=== PATIENT | female | born 1995 | race Caucasian/White ===

== ENCOUNTER 2018-05-10 12:09 | Emergency (ER) | payer SELFPAY ==
[~2018-05-10] VITALS: Ht 167.6 cm; Wt 96.8 kg
[~2018-05-10 12:09] MED LIST: BACTDS PO; CEPH-443 PO; IBUP-1542 PO; PREN-39 PO
[2018-05-10 12:19] VITALS: Ht 167.6 cm; Wt 96.8 kg
[2018-05-10] MEDS ORDERED: KETOROLAC 15 MG INJ IV STA ×2 (12:57→17:10)
[2018-05-10] MEDS ORDERED: SODIUM CHLORIDE 0.9% 1L BAG IV* STA (12:57)
[2018-05-10] MEDS ORDERED: ACETAMINOPHEN 325 MG TAB PO ONE ×2 (13:00→17:30)
[2018-05-10] MEDS ORDERED: CEFTRIAXONE 1 GM/50 ML (PMX) 50 ML IVPB ONE (14:00)
--- NOTE | 2018-05-10 14:07 | ERD ---
ER Documentation Chief Complaint Chief Complaint Complains of a cough with fever since this am HPI This is a 22-year-old female with no significant past medical history who is presenting with a fever. Last Friday, the patient reportedly a seafood and has felt sick since then. The patient has had fever with chills. She endorses full body aches including neck pain and a frontal throbbing pulsing. She does not have any neck stiffness. She is not confused in any way. Headache she has no vision changes. She has no double or blurry vision. She has no photophobia or phonophobia. She does report nausea but no vomiting. She denies any focal deficits. She has no weakness or numbness or tingling to the face or extremities. She does endorse palpitations but no chest pain or pleuritic pain or trouble breathing. She has not had a cough or congestion. She does endorse mild waxing and waning cramping abdominal pain, worse in the epigastrium. She has not noticed any dysuria or hematuria or urgency or frequency. She has not had any constipation or diarrhea. She denies any black or bloody or tarry stools. ROS All systems reviewed and are negative except as per history of present illness. Medications Home Meds Active Scripts Ibuprofen* (Motrin*) 600 Mg Tab, 600 MG PO Q6, #14 TAB Prov:FAINA CLRAK MD 05/29/15 Sulfamethoxazole-Trimethoprim* (Bactrim* DS) 800-160 Mg Tab, 1 TAB PO BID for 10 Days, TAB Prov:FAINA CLARK MD 05/29/15 Cephalexin* (Keflex*) 500 Mg Capsule, 500 MG PO QID for 10 Days, CAP Prov:FAINA CLARK MD 05/29/15 Reported Medications Vits W-Ca,Fe,Fa(<1MG) ( Vitamins) 1 Tab Tablet, 1 TAB PO 01/11/14 Allergies Allergies: Coded Allergies: No Known Allergy (Unverified , 01/11/14) PMhx/Soc Medical and Surgical Hx: pt denies Medical Hx, pt denies Surgical Hx History of Surgery: No Hx Neurological Disorder: No Hx Respiratory Disorders: No Hx Cardiac Disorders: No Hx Psychiatric Problems: No Hx Miscellaneous Medical Probl: No Hx Alcohol Use: No Hx Substance Use: No Hx Tobacco Use: No Smoking Status: Never smoker FmHx Family History: No diabetes Physical Exam Vitals Vital Signs Date Temp Pulse Resp B/P (MAP) Pulse Ox O2 O2 Flow FiO2 Time Delivery Rate 05/10/18 99.2 89 24 100/74 100 Room Air 16:47 (83) 05/10/18 98.7 15:05 05/10/18 94/52 (66) 14:22 05/10/18 101.1 91 25 89/49 (62) 95 14:10 05/10/18 101.7 13:34 05/10/18 Nasal 2 13:05 Cannula 05/10/18 101.7 125 20 126/90 95 12:19 (102) Physical Exam Const: No apparent distress, well-developed, well-nourished Head: Normocephalic, Atraumatic Eyes: Normal Conjunctiva. Extraocular movements intact. Pupils equal, round and reactive to light ENT: Normal External Ears, Nose and Mouth. Neck: Full range of motion. No meningismus. Resp: Clear to auscultation bilaterally, No wheezes, rales or rhonchi Cardio: Regular rhythm. Tachycardia. No murmurs, rubs or gallops Abd: Soft, non tender, non distended. Normal bowel sounds Skin: No petechiae or rashes Back: No midline tenderness. No CVA tenderness Ext: No cyanosis, or edema Neur: Awake and alert, oriented 4. Cranial nerves intact. No facial droop. Normal strength, sensation and coordination. Psych: Normal Mood and Affect Result Diagram: 05/10/18 1315 05/10/18 1315 Results 24 hrs Laboratory Tests Test 05/10/18 13:11 05/10/18 13:15 05/10/18 13:20 05/10/18 16:11 POC Venous Lactate 1.3 mmol/L 1.1 mmol/L White Blood Count 18.5 10^3/ul Red Blood Count 4.73 10^6/ul Hemoglobin 13.0 g/dl Hematocrit 40.2 % Mean Corpuscular 85.0 fl Volume Mean Corpuscular 27.5 pg Hemoglobin Mean Corpuscular 32.3 g/dl Hemoglobin Concent Red Cell 12.9 % Distribution Width Platelet Count 372 10^3/UL Mean Platelet 9.1 fl Volume Immature 0.600 % Granulocytes % Neutrophils % 79.7 % Lymphocytes % 10.5 % Monocytes % 8.8 % Eosinophils % 0.1 % Basophils % 0.3 % Nucleated Red 0.0 /100WBC Blood Cells % Immature 0.120 10^3/ul Granulocytes # Neutrophils # 14.8 10^3/ul Lymphocytes # 1.9 10^3/ul Monocytes # 1.6 10^3/ul Eosinophils # 0.0 10^3/ul Basophils # 0.1 10^3/ul Nucleated Red 0.0 10^3/ul Blood Cells # Prothrombin Time 15.0 Sec Prothrombin Time 1.2 Ratio INR International 1.17 Normalized Ratio Activated 33.[address] Time Urine Color YELLOW Urine Clarity CLOUDY Urine pH 6.0 Urine Specific 1.021 [place] Urine Ketones NEGATIVE mg/dL Urine Nitrite NEGATIVE mg/dL Urine Bilirubin NEGATIVE mg/dL Urine Urobilinogen 2+ mg/dL Urine Leukocyte TRACE Jv/ul Esterase Urine Microscopic 9 /HPF RBC Urine Microscopic 41 /HPF WBC Urine Squamous MANY /HPF Epithelial Cells Urine Bacteria FEW /HPF Urine Mucus FEW /HPF Urine Hemoglobin 2+ mg/dL Urine Glucose NEGATIVE mg/dL Urine Total 2+ mg/dl Protein Sodium Level 139 mmol/L Potassium Level 4.2 mmol/L Chloride Level 97 mmol/L Carbon Dioxide 27 mmol/L Level Anion Gap 15 Blood Urea 9 mg/dl Nitrogen Creatinine 0.67 mg/dl Est Glomerular > 60 mL/min Filtrat Rate mL/min Glucose Level 111 mg/dl Calcium Level 8.7 mg/dl Total Bilirubin 0.2 mg/dl Direct Bilirubin 0.00 mg/dl Indirect Bilirubin 0.2 mg/dl Aspartate Amino 20 IU/L Transf (AST/SGOT) Alanine 14 IU/L Aminotransferase ( ALT/SGPT) Alkaline 100 IU/L Phosphatase Troponin I < 0.012 ng/ml Total Protein 8.6 g/dl Albumin 4.3 g/dl Globulin 4.30 g/dl Albumin/Globulin 1.00 Ratio POC Beta HCG, NEGATIVE Qualitative Current Medications Medications Dose Sig/Blanca Start Time Status Last (Trade) Ordered Route PRN Stop Time Admin Dose Reason Admin Sodium 2,900 ml BOLUS OVER 2 05/10/18 DC 05/10/18 Chloride HOURS STAT 12:57 13:36 (NS) IV* 05/10/18 12:58 Ketorolac 15 mg ONCE STAT 05/10/18 DC 05/10/18 Tromethamine IV 12:57 13:34 (Toradol) 05/10/18 12:59 650 mg ONCE ONCE 05/10/18 DC 05/10/18 Acetaminophen PO 13:00 13:34 (Tylenol 05/10/18 13:01 Tab) Ceftriaxone 50 ml @ ONCE ONCE 05/10/18 DC 05/10/18 Sodium 100 mls/hr IVPB 14:00 14:18 05/10/18 14:29 Procedures/MDM MDM The patient's presentation warrants further investigation. Previous medical records, if available, were reviewed. LABS The patient's laboratory testing was obtained and reviewed. No emergent treatment was required unless described below. CBC: Leukocytosis, concerning for an infectious etiology. No E/o of anemia or thrombocytopenia CMP: No E/o severe acidosis or alkalosis or renal failure or liver disease or diabetic ketoacidosis PT/INR: No E/o significant coagulopathy Lactate: No E/o severe sepsis Troponin: No E/o acute ischemia Urine: Not a clean-catch specimen, but still concerning for a UTI with hematuria. EKG EKG read by me: Rate/Rhythm: Regular rate and rhythm at a rate of 107 bpm Intervals: Normal [place]: Normal Impression: No evidence of acute ischemia or arrhythmia IMAGING Imaging and Radiology interpretation reviewed. CXR FINDINGS: Support Hardware: None Cardiovascular: The cardiovascular silhouette appears unremarkable. Lung Fink: A suboptimal inspiration compresses lung parenchyma but no discrete infiltrate or nodule is evident. Pleural Spaces: No pneumothorax or pleural effusion is identified. Osseous Structures: The osseous structures appear intact. Soft Tissues: The soft tissues appear generous. IMPRESSION: 1. Suboptimal inspiration with the lung fink and pleural spaces otherwise clear. 2. The cardiovascular silhouette appears unremarkable. 3. Otherwise, unremarkable portable chest. Electronically viewed and signed by Jaleel Luke Physician on 05/10/2018 13:41 TREATMENT/DISPOSITION The patient presents with fever, tachycardia. She also has a leukocytosis. Her symptoms are most concerning with a flulike illness. The patient's urinalysis does also reveal a urinary tract infection. She meets criteria for a systemic inflammatory response, so a sepsis workup was completed. The patient was given a full 30 mL/kg bolus of IV fluids as well as a dose of Rocephin in the emergency department. The patient's influenza study was negative. They do still have high suspicion for an upper respiratory infection versus an alternative flulike illness. I do not feel the patient would benefit from Tamiflu at this time. The patient does not have evidence of end-organ damage. I have low suspicion for severe sepsis at this time. DISCHARGE After treatment with IV fluids, Tylenol and Toradol, the patient felt much improved. Upon reevaluation of the patient, symptoms have improved. No emergent diagnoses were identified. Shared decision-making was enacted. The risks and benefits of admission versus discharge were discussed with the patient. While I have low suspicion for a worsening infection, respiratory failure, end-organ damage and/or hemodynamic compromise, these are technically possibilities. Giv en the significant improvement of her symptoms, the patient preferred discharge. She is a young healthy individual, and I do feel that she is stable for discharge and outpatient management. At this time, I feel that the patient stable for discharge. The patient was instructed to follow-up with a primary care physician in 1-3 days. The patient will be given strict precautions with which to return to the emergency department. Prescriptions: Ibuprofen The patient's blood pressure was elevated at greater than 120/80 while in the emergency department. The patient was otherwise stable with no evidence of hypertensive urgency or emergency. The patient does not require admission for blood pressure control. I have discussed with the patient the risks of hypertension. I have instructed the patient to return to the ER for any new or worsening symptoms including chest pain, shortness of breath, headache, blurred vision, confusion, nausea, vomiting or LOC. I have advised the patient to follow up with the primary care physician for outpatient monitoring and treatment for hypertension in 1-3 days. Disclaimer: Inadvertent spelling and grammatical errors are likely due to EHR/dictation software use and do not reflect on the overall quality of patient care. Note that the electronic time recorded on this note does not necessarily reflect the actual time of the patient encounter. Departure Diagnosis: Primary Impression: URI (upper respiratory infection) URI type: unspecified URI Qualified Codes: J06.9 - Acute upper respiratory infection, unspecified Additional Impressions: Flu-like symptoms UTI (urinary tract infection) Urinary tract infection type: acute cystitis Hematuria presence: without hematuria Qualified Codes: N30.00 - Acute cystitis without hematuria Fever Fever type: unspecified Qualified Codes: R50.9 - Fever, unspecified Tachycardia Leukocytosis Leukocytosis type: unspecified Qualified Codes: D72.829 - Elevated white blood cell count, unspecified Condition: Stable SEBASTIAN WEINER MD May 10, 2018 14:06
[2018-05-10] MEDS ORDERED: ACET500C5 PO (17:11)
[2018-05-10] MEDS ORDERED: IBUP-1542 PO (17:11)
[2018-05-10] MEDS ORDERED: CEPH-443 PO (17:15)
[2018-05-10 18:32] VITALS: BP 126/77; PULSE 84; RESP 20
== END 2018-05-10 18:33 | disposition home or self-care (01) ==
LOC: E/R 12:09
DX: J06.9 Acute upper respiratory infection, unspecified (principal); N30.00 Acute cystitis without hematuria; R00.0 Tachycardia, unspecified; D72.829 Elevated white blood cell count, unspecified; R10.2 Pelvic and perineal pain
CPT/HCPCS: 36415; 71045; 74176; 80053; 81001; 81025; 83605; 84484; 85025; 85610; 85730; 87040; 87086; 87400; 93005; 96374; 96375; 96376; 99285; J0696; J1885; J7030

== ENCOUNTER 2018-10-23 10:25 | Emergency (ER) | payer MEDICAID ==
[~2018-10-23] VITALS: Ht 154.9 cm; Wt 94.0 kg
[~2018-10-23 10:25] MED LIST changes: +ACET500C5 PO
[2018-10-23 10:41] VITALS: BP 121/64; PULSE 71; RESP 18; Ht 154.9 cm; Wt 94.0 kg
[2018-10-23] MEDS ORDERED: METHYLPREDNISOLONE 125 MG INJ IM ONE (11:00)
[2018-10-23] MEDS ORDERED: IBUPROFEN 800 MG TAB PO ONE (11:00)
--- NOTE | 2018-10-23 11:05 | ERD ---
ER Documentation Chief Complaint Chief Complaint pt bib self with c/o headache, back pain, ear pain for a few days HPI Patient is a 23 years old female with no known past medical history presenting to the clinic for fever, headaches, left ear pain, sinus pressure, and chest pain with inspiration only X 4 days. Patient denies taking any [id number] medication. Patient denies any shortness of breath, throat pain, abdominal pain, nausea, emesis, diarrhea. ROS All systems reviewed and are negative except as per history of present illness. Medications Home Meds Active Scripts Amoxicillin/Potassium Clav (Amox-Clav 500-125 mg Tablet) 500-125 mg Tab, 1 TAB PO BID for 10 Days, TAB Prov:KESHIA LU PA-C 10/23/18 Methylprednisolone* (Medrol* DOSE PACK) 4 Mg/Dose-Pack Tab.ds.pk, 4 MG PO . DIRECTED for 5 Days, PACKET Prov:KESHIA LU PA-C 10/23/18 Ibuprofen* (Motrin*) 800 Mg Tab, 800 MG PO Q6H PRN for PAIN AND OR ELEVATED TEMP, #30 TAB Prov:KESHIA LU PA-C 10/23/18 Cephalexin* (Keflex*) 500 Mg Capsule, 500 MG PO BID for 7 Days, CAP Prov:SEBASTIAN WEINER MD 05/10/18 Acetaminophen* (Tylophen*) 500 Mg Capsule, 1 CAP PO Q6H PRN for MILD PAIN(1-3)OR ELEVATED TEMP, #20 CAP Prov:SEBASTIAN WEINER MD 05/10/18 Ibuprofen* (Motrin*) 600 Mg Tab, 600 MG PO Q6H PRN for MILD PAIN(1-3)OR ELEVATED TEMP, #30 TAB Prov:SEBASTIAN WEINER MD 05/10/18 Ibuprofen* (Motrin*) 600 Mg Tab, 600 MG PO Q6, #14 TAB Prov:FAINA CLARK MD 05/29/15 Sulfamethoxazole-Trimethoprim* (Bactrim* DS) 800-160 Mg Tab, 1 TAB PO BID for 10 Days, TAB Prov:FAINA CLARK MD 05/29/15 Cephalexin* (Keflex*) 500 Mg Capsule, 500 MG PO QID for 10 Days, CAP Prov:FAINA CLARK MD 05/29/15 Reported Medications Vits W-Ca,Fe,Fa(<1MG) ( Vitamins) 1 Tab Tablet, 1 TAB PO 01/11/14 Allergies Allergies: Coded Allergies: No Known Allergy (Unverified , 01/11/14) PMhx/Soc History of Surgery: No Hx Neurological Disorder: No Hx Respiratory Disorders: No Hx Cardiac Disorders: No Hx Psychiatric Problems: No Hx Miscellaneous Medical Probl: No Hx Alcohol Use: No Hx Substance Use: No Hx Tobacco Use: No FmHx Family History: No diabetes, No coronary disease, No other Physical Exam Vitals Vital Signs Date Temp Pulse Resp B/P (MAP) Pulse Ox O2 O2 Flow FiO2 Time Delivery Rate 10/23/18 98.9 71 18 121/64 98 10:41 (83) Physical Exam Const: No acute distress Head: Atraumatic. Frontal, ethmoidal, maxillary sinus tenderness. Eyes: Normal Conjunctiva ENT: Normal External Ears, Nose and Mouth. Left tympanic membrane injected without any signs of discharge or perforation. Neck: Full range of motion. No meningismus. Resp: Clear to auscultation bilaterally. No rales, rhonchi, wheezing. Cardio: Regular rate and rhythm, no murmurs Neur: Awake and alert Psych: Normal Mood and Affect Results 24 hrs Laboratory Tests Test 10/23/18 11:11 POC Beta HCG, Qualitative NEGATIVE Current Medications Medications Dose Sig/Blanca Start Time Status Last (Trade) Ordered Route PRN Stop Time Admin Dose Reason Admin 125 mg ONCE ONCE 10/23/18 DC 10/23/18 Methylprednis IM 11:00 11:10 olone Sodium 10/23/18 11:01 Succinate (Solu-Medrol) Ibuprofen 800 mg ONCE ONCE 10/23/18 DC 10/23/18 (Motrin) PO 11:00 11:10 10/23/18 11:01 Procedures/MDM Patient was seen and evaluated for headache, sinus pressure, ear pain, chest pain with inspiration. Patient is exhibiting sinusitis without infection with left otitis media without complications. Patient chest pain with inspiration is most likely due to costochondritis. Patient was giving Solu-Medrol 125 IM and ibuprofen 800 mg in ED with significant improvement of symptoms. Patient is stable and ready for discharge. Follow-up with PCP. Patient will be discharged with Augmentin 500 mg for 10 days, Medrol Dosepak, ibuprofen 800 mg. Departure Diagnosis: Primary Impression: Sinusitis Sinusitis location: unspecified location Chronicity: acute Recurrence: non-recurrent Qualified Codes: J01.90 - Acute sinusitis, unspecified Additional Impressions: Otitis media Otitis media type: suppurative Chronicity: acute Laterality: left Recurrence: non-recurrent Spontaneous tympanic membrane rupture: without spontaneous rupture Qualified Codes: H66.002 - Acute suppurative otitis media without spontaneous rupture of ear drum, left ear Chest wall pain Patient Instructions: Acute Sinusitis, Chest Wall Pain, Costochondritis, Otitis Media, Abx Tx (Adult) Referrals: [facility] Additional Instructions: Paciente aconseja volver a Departamento de urgencias inmediatamente para sntomas nuevos o que empeoran . Paciente aconseja posteriores con el PCP en 2-3 holliday . Paciente verbaliza la comprehensin y est de acuerdo con el tratamiento y el curso de accin. Si el paciente no tiene ninguna de atencin primaria pueden seguir con [facility] [address] [place] [address] [facility] + [address] [address] KESHIA LU PA-C Oct 23, 2018 11:05
[2018-10-23] MEDS ORDERED: IBUP800T48 PO (11:07)
[2018-10-23] MEDS ORDERED: AMOX1TAB9 PO (11:07)
[2018-10-23] MEDS ORDERED: MED4DP PO (11:07)
== END 2018-10-23 12:57 | disposition home or self-care (01) ==
LOC: FTE 10:25
DX: J01.90 Acute sinusitis, unspecified (principal); H66.002 Acute suppurative otitis media without spontaneous rupture of ear drum, left ear; R07.89 Other chest pain
CPT/HCPCS: 81025; 96372; J2930; Z7502; Z7610